=== PATIENT | female | born 1970 | race Caucasian/White ===

== ENCOUNTER 2017-12-21 14:41 | Emergency (ER) | payer OTHER | END 2017-12-21 15:40 | disposition home or self-care (01) | LOC: FTE 14:41 | DX: M54.2 Cervicalgia (principal); H69.90 Unspecified Eustachian tube disorder, unspecified ear; F17.210 Nicotine dependence, cigarettes, uncomplicated | CPT/HCPCS: 99282; Z7502 ==

== ENCOUNTER 2018-07-14 14:28 | Emergency (ER) | payer OTHER ==
[2018-07-14] MEDS: DIAZEPAM 5 MG TAB PO (15:18)
[2018-07-14] MEDS: KETOROLAC 60 MG INJ IM (15:19)
== END 2018-07-14 15:34 | disposition home or self-care (01) ==
LOC: FTE 15:34
DX: S40.211A Abrasion of right shoulder, initial encounter (principal); V49.59XA Passenger injured in collision with other motor vehicles in traffic accident, initial encounter
CPT/HCPCS: 81025; 96372; 99284-25